=== PATIENT | female | born 1955 | race African-American/Black ===

== ENCOUNTER 2017-05-12 14:01 | Inpatient (IN) ==
[2017-05-12] MEDS ORDERED: MAGNESIUM HYDROXIDE SUSP 30 ML UDCUP PO PRN (14:43)
--- NOTE | 2017-05-12 14:43 | Emergency Department Note ---
Romero Garsia Brittany, am scribing for, and in the presence of, Sadi Rubi M.D. 14:22. Elicia Garsia Howard T, M.D., personally performed the services described in this documentation, ascribed by Joann Jasso in my presence, and it is both accurate and complete [id number] . Arrival - Arrival Chief Complaint: Fall Stated Complaint: fall ED Nursing Triage Note: c/o right ankle and leg pain after fall over the weekend was sent from Dr. Vargas office for further evaluation right leg is externally rotated and shortened at the time of triage+ pedal pulses noted Mode of Arrival: Stretcher Limitations: No Limitations Source: Patient Time Seen by Provider: 05/12/17 14:13 - History of Present Illness HPI Narrative: This is a 61 y/o black female,who presents to the ED with c/o right ankle pain which started 6 days ago S/P fall. She states she fell 6 days ago and hurt her right ankle. She denies hitting her head or any hip pain. She denies any knee pain. Pt has no other complaints/pain in the ED at this time. PT has a PMHx of RA, MS, and GERD. Pt has had an eye surgery. Pt has a family medical Hx of cancer and diabetes. Pt denies a social Hx. Onset (ago): day(s) (6 days ago) Consistency: constant Severity: moderate Date of Last Menstrual Period: hysterectomy Allergies/Adverse Reactions: Allergies Allergy/AdvReac Type Severity Reaction Status Date / Time Sulfa (Sulfonamide Allergy Severe RASH Verified 11/27/16 02:51 Antibiotics) Home Medications: Home Medications Medication Instructions Recorded Confirmed Type Alendronate Sodium 70 mg PO Q7DAY 01/10/16 01/13/16 History Aspirin [Ecotrin] 81 mg PO DAILY 01/10/16 01/13/16 History Dimethyl Fumarate [Tecfidera] 240 mg PO BID 01/10/16 01/13/16 History Escitalopram [Lexapro] 5 mg PO DAILY 01/10/16 01/13/16 History Metoclopramide Tab [Reglan Tab] 5 mg PO DAILY 01/10/16 01/13/16 History Omeprazole 40 mg PO DAILY 01/10/16 01/13/16 History Indomethacin Cap [Indocin Cap] 25 mg PO TID #30 capsule 11/27/16 Rx Tizanidine HCl [Zanaflex] 2 mg PO Q6H #40 capsule 11/27/16 Rx Review of System - Review of System 12 point system: reviewed and no additional remarkable complaints except as stated - Review of System Musculoskeletal: Present: other (Right ankle pain ) Medical,Surgical,& Family Hx - Medical History Neurology: History of: Multiple Sclerosis HEENT: History of: Eye Problem (COD) Rheumatology: History of;: Rheumatoid Arthritis Genitourinary: History of: Bladder Problem (WEAK INCONTIENCE) Gastrointestinal: History of: GERD Musculoskeletal: History of: Musculoskeletal Problems - Surgical History HEENT Surgeries: Surgical HX of: Eye Surgery (ALREADY HAD COS COD ON 01/13/16) - Family History Family History: Reports;: Family Cancer (MOM), Family Diabetes (MOM) - Social History Smoking Status: Never smoker Exam Vital Signs: Vital Signs Temperature 98.5 F 05/12/17 14:10 Pulse Rate 119 H 05/12/17 14:10 Respiratory Rate 20 05/12/17 14:10 Blood Pressure 120/70 05/12/17 14:10 O2 Sat by Pulse Oximetry 98 05/12/17 14:03 - General General appearance: alert, in no apparent distress - Head Head exam: Present: atraumatic, normocephalic, normal inspection - Eye Eye exam: Present: normal appearance, PERRL, EOMI. Absent: nystagmus, miosis, mydriasis - ENT ENT exam: Present: normal exam, normal oropharynx, mucous membranes moist, TM's normal bilaterally, normal external ear exam - Neck Neck exam: Present: normal inspection, full ROM, trachea midline. Absent: tenderness, meningismus, lymphadenopathy, thyromegaly - Chest Chest inspection: Present: normal inspection, symmetric chest wall rise. Absent : tenderness, rash, abscess - Respiratory Respiratory exam: Present: normal lung sounds bilaterally. Absent: rales, respiratory distress, rhonchi, stridor, wheezes - Cardiovascular Cardiovascular exam: Present: regular rate, normal rhythm, normal heart sounds. Absent: murmur, rubs, gallop, clicks, JVD - Abdominal Exam Abdominal exam: Present: soft, normal bowel sounds. Absent: distention, tenderness, guarding, rebound, rigidity - Rectal Exam Rectal exam: Present: deferred - Extremities Exam Extremities exam: Present: normal capillary refill, other (RLE is externally rotated, swollen and erythamous). Absent: normal inspection, full ROM, pedal edema, joint swelling, calf tenderness - Back Exam Back exam: Present: normal inspection, full ROM. Absent: tenderness, muscle spasm, rashes - Neurological Exam Neurological exam: Present: alert, oriented X3, CN II-XII intact. Absent: motor sensory deficit - Psychiatric Psychiatric exam: Present: normal affect, normal mood. Absent: depressed, agitated, anxious, flat affect, manic - Skin Skin exam: Present: warm, dry, intact, normal color. Absent: rash, cyanosis, diaphoresis, erythema, pallor, mottled Course Course Narrative: Medical decision making: Patient comfortable at this time but will probably need to go the operating room, Dr. Ventura orthopedic notified and reviewed x- rays and recommended overnight admission for probable repair in the morning. Disposition Clinical Impression: Closed right ankle fracture, Multiple sclerosis Case discussed with: patient Disposition: Still a Patient Condition: Stable Time of Disposition: 14:42
--- NOTE | 2017-05-12 14:45 | XRay Report ---
XR ankle 2V RT Indication: Fall 5 days ago, externally rotated Comparison: None Technique: Frontal and lateral views of the right ankle Findings: Acute, comminuted fracture through the distal tibial diametaphysis with mild lateral apex angulation. Acute, mildly comminuted fracture through the distal fibular diametaphysis with mild lateral apex angulation. Surrounding soft tissue swelling noted. IMPRESSION: As above. PROCEDURE INTERPRETED AT [facility] DEPARTMENT OF RADIOLOGY Final Report Signed by: Dr Lionel Gonzales
--- NOTE | 2017-05-12 14:48 | XRay Report ---
XR chest 1V portable Indication: Fall. Preop respiratory evaluation. Ankle fracture. Chest one view: Comparison 01/10/2016. Given variation in technique, heart is probably unchanged, still normal in size. Mediastinal contours unremarkable. No discrete infiltrates are seen. Pleural spaces appear clear. Healed posterior right rib fractures are stable. Impression: Given variation in technique, no acute cardiopulmonary disease when compared to 01/10/2016. PROCEDURE INTERPRETED AT [facility] DEPARTMENT OF RADIOLOGY Final Report Signed by: Lyndon Courtney M.D.
[2017-05-12] MEDS ORDERED: LACTATED RINGERS 1,000 ML IV SCH (15:00)
[2017-05-12 15:14] LABS: Basophils % 0.3 % (0.0-0.8); Eosinophils % 0.2 % (0.00-10.9); Hematocrit 40.4 VOL% (35.7-47.0); Immature Granulocytes % 0.6 %; Immature Granulocytes Absolute 0.09 #; Lymphocytes % 6.6 % (21.3-54.2); Mean Corpuscular HGB Conc 32.2 GM/DL (32-36); Mean Corpuscular Hemoglobin 28 PG (27-34); Mean Corpuscular Volume 86.7 FL (87-102); Mean Platelet Volume 11.9 FL (9.6-12.0); Monocytes % 6.4 % (1.7-12.7); Neutrophils # 13.4 10*3/uL (1.4-7.4); Neutrophils % 85.9 % (38.7-73.9); Platelet Count 253 T/CUMM (130-400); Red Blood Count 4.66 MC/CUMM (3.8-5.5); Red Cell Distribution Width 13.8 % (9.3-17.3); White Blood Count 15.6 T/CUMM (4-12)
[2017-05-12 15:24] LABS: PT Patient Result 10.7 SECS
[2017-05-12 15:41] LABS: Calcium 9.2 MG/DL (8.5-10.1); Magnesium 2.5 MG/DL (1.8-2.4); Potassium 3.7 MMOL/L (3.5-5.1)
[2017-05-12 16:02] LABS: Albumin 3.2 G/DL (3.4-5.0); Bilirubin,Total 1.2 MG/DL (0.2-1.0); Calcium 9.1 MG/DL (8.5-10.1); Potassium 3.7 MMOL/L (3.5-5.1); Total Protein 8.2 G/DL (6.4-8.3)
--- NOTE | 2017-05-12 16:39 | Internal Medicine Consult Note ---
Assessment and Plan (1) Multiple sclerosis Status: Chronic Assessment and plan: Impression: 1. Multiple sclerosis Recommendations: The patient's risk for surgery is acceptable. Her revised cardiac risk index is 0. Postop she is to have usual DVT prophylaxis with oral or injectable anticoagulants, JOAQUIN hose, and compression devices. We will be glad to stand by and assist. We will resume home medications as indicated. This note was completed using Kudan voice recognition software. There may be tennis desk team member errors as a result. Current Visit: Yes History of Present Illness - Data of Consult Patient: new to practice Consult date: 05/12/17 Requesting Physician: Scott Ventura Jr. - Consult Narrative Reason for consult: Preoperative evaluation of patient with multiple sclerosis History of present illness: Ms. Mcknight is a 61 year old female The patient has apparently had multiple sclerosis for the past 20 years or so. She is followed by Dr. Radha Skelton in [place]. She is still somewhat ambulatory, but is significantly disabled from the MS. she fell last week, and apparently sustained the ankle fracture at that time. She has finally come into the emergency room for evaluation. She reports no other medical problems at all. She specifically denies any kidney disease, diabetes, hypertension, heart disease, myocardial infarction, congestive heart failure, stroke, chest pain, or dyspnea. CC: Scott Ventura Jr., MD - Home Medications and Allergies Home Medications: Home Medications Medication Instructions Recorded Confirmed Type Alendronate Sodium 70 mg PO Q7DAY 01/10/16 01/13/16 History Aspirin [Ecotrin] 81 mg PO DAILY 01/10/16 01/13/16 History Dimethyl Fumarate [Tecfidera] 240 mg PO BID 01/10/16 01/13/16 History Escitalopram [Lexapro] 5 mg PO DAILY 01/10/16 01/13/16 History Metoclopramide Tab [Reglan Tab] 5 mg PO DAILY 01/10/16 01/13/16 History Omeprazole 40 mg PO DAILY 01/10/16 01/13/16 History Indomethacin Cap [Indocin Cap] 25 mg PO TID #30 capsule 11/27/16 Rx Tizanidine HCl [Zanaflex] 2 mg PO Q6H #40 capsule 11/27/16 Rx Allergies/Adverse Reactions: Allergies Allergy/AdvReac Type Severity Reaction Status Date / Time Sulfa (Sulfonamide Allergy Severe RASH Verified 11/27/16 02:51 Antibiotics) - Neurological Neurological: Present: as per HPI Medical,Surgical,& Family Hx - Medical History Neurology: History of: Multiple Sclerosis HEENT: History of: Eye Problem (COD) Rheumatology: History of;: Rheumatoid Arthritis Genitourinary: History of: Bladder Problem (WEAK INCONTIENCE) Gastrointestinal: History of: GERD Musculoskeletal: History of: Musculoskeletal Problems - Surgical History HEENT Surgeries: Surgical HX of: Eye Surgery (ALREADY HAD COS COD ON 01/13/16) Reproductive Surgeries: Surgical HX of;: Section - Family History Family History: Reports;: Family Cancer (MOM), Family Diabetes (MOM) - Social History Smoking Status: Never smoker Exam (Progress Note) - Constitutional Vitals: Period Temp Pulse Resp BP Sys/Lynn Pulse Ox Last 24 Hr 98.5 F-98.5 F 119-119 18-20 120-123/67-70 90-98 Vital signs are noted above. General: She is a pleasant black lady in no distress. HEENT: Pupils are round and reactive. Extraocular muscles are normal. Gaze is conjugate. Fundi were not examined. There is no nasal discharge. Mucous membranes are moist. Neck: Supple, without mass, bruit, or venous distention. Cardiac: Rhythm is regular. The carotids are normal. I don't hear murmur gallop or rub. Peripheral pulses are intact. Lungs: Clear without rales, wheezes, or rubs. Abdomen: Soft and nontender. Bowel sounds are present. No mass palpable. Rectal: Not done. Extremities: The right upper extremity is contracted. She has a cast on the right lower extremity. She has a few millimeters of edema in the left lower extremity. Skin: No significant rash or lesion. Neurologic: She is awake and alert. The right upper extremity is contracted. The right lower extremity is bandaged and splinted. She has some speech apraxia Results - Labs CBC & BMP: 05/12/17 15:00 05/12/17 15:00 Lab Results: I have reviewed the past 24 hour labs
[2017-05-12] MEDS ORDERED: ONDANSETRON 4 MG/2 ML VIAL IV PRN (19:00)
[2017-05-12] MEDS ORDERED: MORPHINE 2 MG/1 ML SYRINGE IV PRN ×2 (19:00→19:07)
[2017-05-12] MEDS ORDERED: diphenhydrAMINE CAP 25 MG CAPSULE PO PRN (19:00)
[2017-05-12] MEDS ORDERED: ZALEPLON 5 MG CAPSULE PO PRN (19:00)
--- NOTE | 2017-05-12 22:28 | Consultation ---
A 61-year-old black female, admitted for comminuted distal tib-fib fracture. The injury evidently oc curred on Wednesday. She has had two, possibly three EMS visits to the house since this occurred. Marleny gomez, seeking medical attention at [facility] today, where x-ray confirmed fractured distal tib-fib . I was asked to evaluate regarding the injuries. Of note, she does have a significant history of m ultiple sclerosis and she and family report that she has not been ambulatory in years. PAST MEDICAL HISTORY: Multiple sclerosis, arthritis, incontinence and reflux. PAST SURGERY: Hysterectomy and heart surgery. ALLERGIES: ALLERGIC TO SULFA. ALENDRONATE, ECOTRIN, , LEXAPRO, REGLAN, OMEPRAZOLE, INDOCIN AND ZANAFLEX. PHYSICAL EXAMINATION GENERAL: A well-developed, nourished female. She is awake, alert, responding to questions appropria tely. HEENT: Within normal limits. CHEST: Clear. HEART: Regular rate and rhythm. ABDOMEN: Soft, nontender. /RECTAL: Deferred. EXTREMITIES: She has a splint applied, well-padded to the right lower extremity. Capillary refill i s intact. She has no active motion of the toes. She did not respond with any pain with gentle passi ve range of motion. No pain about the left lower or either upper extremity. RADIOGRAPHS: Confirmed a comminuted but well aligned fracture involving the distal tib-fib. IMPRESSION: DISTAL TIBIA-FIBULA FRACTURE, RIGHT. PLAN: I have discussed with her and her family, present the diagnosis given her medical comorbiditie s and nonambulatory status, I have recommended nonoperative treatment. I believe, we can continue to manage this in good alignment in the cast. Due to significant amount of swelling, she has had over the past five days, the splint is appropriate initially; we would put on casting in the near feature. They appear to understand and agree with the plan. We will get PT to assist with mobilizing and sh e will most likely need rehab placement. We will consult Hospital Orderly. Appreciate Medicine's hel p.
[2017-05-13] MEDS: DESITIN 4OZ/NYSTATIN 15 GRAM MIXTURE PASTE TOP SCH ×2 (09:50→22:46)
--- NOTE | 2017-05-13 12:34 | Hospitalist Progress Note ---
Assessment and Plan - Time spent with patient Time spent with patient: Greater than 30 minutes (1) Closed right ankle fracture Status: Acute Assessment and plan: Nonoperative management. Continue PT as per orthopedics recommendations. Current Visit: Yes (2) Multiple sclerosis Status: Chronic Assessment and plan: Supportive care. Current Visit: Yes Hospitalist: Subjective Interval history: Ms. Mcknight was admitted for distal tib-fib fracture right side. She has no complaints currently. Exam - Constitutional Vitals: Period Temp Pulse Resp BP Sys/Lynn Pulse Ox Last 24 Hr 97.6 F-99.2 F 92-119 18-20 120-149/67-85 90-99 General appearance: no acute distress - Head Head exam: Present: normocephalic, atraumatic - Eye Eye exam: Present: EOMI Pupils: Present: KENDRA - ENT ENT exam: Present: normal exam - Neck Neck exam: Present: normal inspection - Respiratory Respiratory exam: Present: clear to auscultation bilaterally. Absent: rhonchi, wheezes - Cardiovascular Cardiovascular exam: Present: regular rate and rhythm. Absent: gallop, rubs, systolic murmur - GI/Abdominal GI/Abdominal exam: Present: normal bowel sounds, soft. Absent: distended, firm , guarding, tenderness, rebound - Extremities Exam Extremities exam: Present: normal inspection, other (Right lower leg within soft cast). Absent: calf tenderness, edema Results - Labs CBC & BMP: 05/12/17 15:00 05/12/17 15:00 Lab Results: I have reviewed the past 24 hour labs
--- NOTE | 2017-05-13 13:13 | Orthopedic Progress Note ---
Orthopedics - Subjective Interval history: Tolerating splint well mobilized to chair discussed with she and her sister/ family options for either rehab versus going back home she is essentially nonambulator will remain nonweightbearing on the right ankle. Splint is in place and comfortable plan on changing to cast in 1 week will have a follow-up visit for casting Exam - Constitutional Vitals: Period Temp Pulse Resp BP Sys/Lynn Pulse Ox Last 24 Hr 97.6 F-99.2 F 92-119 18-20 120-149/67-85 90-99 Results - Labs CBC & BMP: 05/12/17 15:00 05/12/17 15:00
--- NOTE | 2017-05-13 13:15 | Discharge Summary ---
<Scott Ventura Jr. - Last Filed: 05/13/17 13:13> Hospital Course - Hospital Course Hospital Course: Admitted for right tib-fib fracture nonoperative candidate tolerating splint. Due to medical comorbidities and nonweightbearing status patient was able to be discharged home. She was discharged to inpatient rehab. Time of discharge her splint was clean and dry, brisk capillary refill in toes Diagnosis - Discharge Diagnosis (1) Fracture of right tibia and fibula Status: Acute Specialty Discharge - Follow Up or Referrals Follow up with: Scott Ventura Jr., MD [Physician] - 05/24/17 10:00 am Discharge Plan - Discharge Data Disposition: Disch/Xfer-Ip Rehab Fac Condition at Discharge: Stable Discharge Diet: advance to your usual diet Activity: ambulate only with your walker, increase activity as tolerated Weight Bearing at Discharge: non-weight bearing Driving: not until seen by doctor - Discharge Medications Continue Alendronate Sodium 70 mg PO Q7DAY Escitalopram [Lexapro] 5 mg PO DAILY Omeprazole 40 mg PO DAILY Aspirin [Ecotrin] 81 mg PO DAILY - Follow Up or Referral Follow Up: Scott Ventura Jr., MD [Physician] - 05/24/17 10:00 am - Forms/Instructions Additional Discharge Instructions: Discharge to home versus swing bed continue home medications [place] for pain routine splint care keep clean dry and elevated nonweightbearing on the right follow-up in 10 days for cast Exam - Constitutional Vitals: Period Temp Pulse Resp BP Sys/Lynn Pulse Ox Last 24 Hr 97.4 F-98.3 F 89-104 16-20 112-136/65-75 93-100 DS: Provider Date of admission: 05/12/17 14:43 Primary care physician: . No PCP Attending physician on admission: Scott Ventura Jr., MD Consults: 05/12/17 14:43 Consult to Physician [CONS] Routine Comment: Consulting Provider: [facility] 05/12/17 14:46 Consult to Physician [CONS] Routine Comment: Consulting Provider: Consult Notification Comment: pt was seen by Lorenzo Burden in ed 05/12/17 18:59 Consult to Case Mgmt/Social Srvs [CONS] Routine Reason for Case Mgmt/Social Srvs: Discharge Planning Consult to Physical Therapy [CONS] Routine Reason for Physical Therapy: Evaluate and Treat Consult Comment: [id number] on right Discharging clinician: Scott Ventura Jr., MD <Amando Canas - Last Filed: 05/17/17 08:34> Diagnosis - Discharge Diagnosis (1) Closed right ankle fracture Status: Acute
[2017-05-13] MEDS: PANTOPRAZOLE 40 MG TABLET PO SCH (15:46)
[2017-05-13] MEDS ORDERED: DIMETHYL FUMARATE 240 MG PO SCH (21:00)
[2017-05-14 07:43] LABS: Basophils % 0.4 % (0.0-0.8); Eosinophils # 0.4 10*3/uL (0.0-0.87); Eosinophils % 4.9 % (0.00-10.9); Hematocrit 33.2 VOL% (35.7-47.0); Immature Granulocytes % 0.4 %; Immature Granulocytes Absolute 0.04 #; Lymphocytes # 1.1 10*3/uL (1.4-4.0); Lymphocytes % 11.9 % (21.3-54.2); Mean Corpuscular HGB Conc 33.1 GM/DL (32-36); Mean Corpuscular Hemoglobin 29 PG (27-34); Mean Corpuscular Volume 86.7 FL (87-102); Mean Platelet Volume 12.3 FL (9.6-12.0); Monocytes # 0.8 10*3/uL (0.11-0.8); Monocytes % 8.9 % (1.7-12.7); Neutrophils # 6.6 10*3/uL (1.4-7.4); Neutrophils % 73.5 % (38.7-73.9); Platelet Count 236 T/CUMM (130-400); Red Blood Count 3.83 MC/CUMM (3.8-5.5); Red Cell Distribution Width 13.9 % (9.3-17.3)
[2017-05-14] MEDS: ESCITALOPRAM 10 MG TABLET PO SCH (09:32)
[2017-05-14] MEDS: PANTOPRAZOLE 40 MG TABLET PO SCH (09:32)
[2017-05-14] MEDS: ASPIRIN EC 81 MG TABLET PO SCH (09:33)
--- NOTE | 2017-05-14 12:43 | Hospitalist Progress Note ---
Assessment and Plan - Time spent with patient Time spent with patient: Greater than 30 minutes (1) Closed right ankle fracture Status: Acute Assessment and plan: Nonoperative management. Continue PT as per orthopedics recommendations. Current Visit: Yes (2) Multiple sclerosis Status: Chronic Assessment and plan: Supportive care. Home medications have been continued. Current Visit: Yes Hospitalist: Subjective Interval history: No complaints this morning. No overnight events. Exam - Constitutional Vitals: Period Temp Pulse Resp BP Sys/Lynn Pulse Ox Last 24 Hr 97.5 F-98.9 F 93-112 18-20 113-139/60-72 95-100 General appearance: no acute distress - Head Head exam: Present: normocephalic, atraumatic - Eye Eye exam: Present: EOMI Pupils: Present: KENDRA - ENT ENT exam: Present: normal exam - Neck Neck exam: Present: normal inspection - Respiratory Respiratory exam: Present: clear to auscultation bilaterally. Absent: rhonchi, wheezes - Cardiovascular Cardiovascular exam: Present: regular rate and rhythm. Absent: gallop, rubs, systolic murmur - GI/Abdominal GI/Abdominal exam: Present: normal bowel sounds, soft. Absent: distended, firm , guarding, tenderness, rebound - Extremities Exam Extremities exam: Present: normal inspection, other (Right leg with an soft splint). Absent: calf tenderness, edema Results - Labs CBC & BMP: 05/14/17 06:34 05/12/17 15:00 Lab Results: I have reviewed the past 24 hour labs Specialty Discharge - Follow Up or Referrals Follow up with: Scott Ventura Jr., MD [Physician] - 05/24/17 10:00 am
--- NOTE | 2017-05-14 14:51 | Orthopedic Progress Note ---
Assessment and Plan (1) Closed right ankle fracture Status: Acute Assessment and plan: Continue physical therapy Discharge planning Current Visit: Yes Qualifiers: Encounter type: initial encounter Qualified Code(s): S82.891A - Other fracture of right lower leg, initial encounter for closed fracture Orthopedics - Subjective Interval history: No new complaints. Patient was able to sit on the side of the bed with therapy this morning. On exam her splint is clean and dry Exam - Constitutional Vitals: Period Temp Pulse Resp BP Sys/Lynn Pulse Ox Last 24 Hr 97.5 F-98.9 F 93-112 18-20 113-139/60-72 95-100 Results - Labs CBC & BMP: 05/14/17 06:34 05/12/17 15:00 Specialty Discharge - Follow Up or Referrals Follow up with: Scott Ventura Jr., MD [Physician] - 05/24/17 10:00 am
[2017-05-14] MEDS: DESITIN 4OZ/NYSTATIN 15 GRAM MIXTURE PASTE TOP SCH ×2 (19:48→22:30)
--- NOTE | 2017-05-15 06:59 | Orthopedic Progress Note ---
Assessment and Plan (1) Closed right ankle fracture Status: Acute Assessment and plan: Continue physical therapy Discharge planning Current Visit: Yes Qualifiers: Encounter type: initial encounter Qualified Code(s): S82.891A - Other fracture of right lower leg, initial encounter for closed fracture Exam - Constitutional Vitals: Period Temp Pulse Resp BP Sys/Lynn Pulse Ox Last 24 Hr 97.1 F-98.0 F 93-110 18-20 116-137/60-116 95-99 Results - Labs CBC & BMP: 05/14/17 06:34 05/12/17 15:00 Specialty Discharge - Follow Up or Referrals Follow up with: Scott Ventura Jr., MD [Physician] - 05/24/17 10:00 am
--- NOTE | 2017-05-15 08:01 | Orthopedic Progress Note ---
Assessment and Plan (1) Closed right ankle fracture Status: Acute Assessment and plan: Continue physical therapy Discharge planning Current Visit: Yes Qualifiers: Encounter type: initial encounter Qualified Code(s): S82.891A - Other fracture of right lower leg, initial encounter for closed fracture Orthopedics - Subjective Interval history: No c/o this am. exam unchanged from yesterday Exam - Constitutional Vitals: Period Temp Pulse Resp BP Sys/Lynn Pulse Ox Last 24 Hr 97.1 F-98.0 F 93-110 18-20 116-137/70-116 93-97 Results - Labs CBC & BMP: 05/14/17 06:34 05/12/17 15:00 Specialty Discharge - Follow Up or Referrals Follow up with: Scott Ventura Jr., MD [Physician] - 05/24/17 10:00 am
[2017-05-15] MEDS: ESCITALOPRAM 10 MG TABLET PO SCH (09:01)
[2017-05-15] MEDS: PANTOPRAZOLE 40 MG TABLET PO SCH (09:01)
[2017-05-15] MEDS: ASPIRIN EC 81 MG TABLET PO SCH (09:01)
--- NOTE | 2017-05-15 09:27 | Hospitalist Progress Note ---
Assessment and Plan - Time spent with patient Time spent with patient: Less than 30 minutes (1) Fracture of right tibia and fibula Status: Acute Assessment and plan: She had nonoperative treatment and is being followed by or so. Discharge planning is in process. Current Visit: Yes (2) Multiple sclerosis Status: Chronic Assessment and plan: Stable and continue current medical care. Awaiting discharge planning. Current Visit: Yes Hospitalist: Subjective Interval history: Chart has been reviewed and patient examined. She has no complaints at this time. Exam - Constitutional Vitals: Period Temp Pulse Resp BP Sys/Lynn Pulse Ox Last 24 Hr 97.1 F-98.0 F 93-110 18-20 116-137/70-116 93-97 General appearance: no acute distress - Head Head exam: Present: normocephalic, atraumatic - Eye Eye exam: Present: EOMI - ENT ENT exam: Present: normal exam - Neck Neck exam: Present: normal inspection - Respiratory Respiratory exam: Present: clear to auscultation bilaterally - Cardiovascular Cardiovascular exam: Present: regular rate and rhythm - GI/Abdominal GI/Abdominal exam: Present: normal bowel sounds, soft. Absent: tenderness, rebound - Extremities Exam Extremities exam: Present: other (Splinting left ankle). Absent: calf tenderness, edema - Neurological Exam Neurological exam: Present: alert, oriented X3 - Skin Skin exam: Present: warm, dry. Absent: rash Results - Labs CBC & BMP: 05/14/17 06:34 05/12/17 15:00 Lab Results: I have reviewed the past 24 hour labs Specialty Discharge - Follow Up or Referrals Follow up with: Scott Ventura Jr., MD [Physician] - 05/24/17 10:00 am
[2017-05-15] MEDS: DESITIN 4OZ/NYSTATIN 15 GRAM MIXTURE PASTE TOP SCH ×2 (09:43→20:24)
[2017-05-16] MEDS: PANTOPRAZOLE 40 MG TABLET PO SCH (08:40)
[2017-05-16] MEDS: ESCITALOPRAM 10 MG TABLET PO SCH (08:40)
[2017-05-16] MEDS: ASPIRIN EC 81 MG TABLET PO SCH (08:40)
--- NOTE | 2017-05-16 09:17 | Hospitalist Progress Note ---
Assessment and Plan - Time spent with patient Time spent with patient: Less than 30 minutes (1) Fracture of right tibia and fibula Status: Acute Assessment and plan: She had nonoperative treatment and is being followed by orthopedics. Discharge planning is in process. Current Visit: Yes (2) Multiple sclerosis Status: Chronic Assessment and plan: Stable and continue current medical care. Awaiting discharge planning. Current Visit: Yes Hospitalist: Subjective Interval history: Patient doing well without complaints today. Exam - Constitutional Vitals: Period Temp Pulse Resp BP Sys/Lynn Pulse Ox Last 24 Hr 96.3 F-99.1 F 85-101 16-20 112-141/66-81 92-97 General appearance: no acute distress - Head Head exam: Present: normocephalic, atraumatic - Eye Eye exam: Present: EOMI Pupils: Present: KENDRA - ENT ENT exam: Present: normal exam - Neck Neck exam: Present: normal inspection - Respiratory Respiratory exam: Present: clear to auscultation bilaterally - Cardiovascular Cardiovascular exam: Present: regular rate and rhythm - GI/Abdominal GI/Abdominal exam: Present: normal bowel sounds, soft. Absent: tenderness, rebound - Extremities Exam Extremities exam: Present: other (Casted/splinted right ankle.). Absent: calf tenderness, edema - Neurological Exam Neurological exam: Present: alert, oriented X3 - Psychiatric Psychiatric exam: Absent: agitated, anxious - Skin Skin exam: Present: warm, dry. Absent: rash Results - Labs CBC & BMP: 05/14/17 06:34 05/12/17 15:00 Lab Results: I have reviewed the past 24 hour labs Specialty Discharge - Follow Up or Referrals Follow up with: Scott Ventura Jr., MD [Physician] - 05/24/17 10:00 am
[2017-05-16] MEDS: DESITIN 4OZ/NYSTATIN 15 GRAM MIXTURE PASTE TOP SCH ×2 (09:39→21:43)
--- NOTE | 2017-05-16 11:36 | Orthopedic Progress Note ---
Assessment and Plan (1) Closed right ankle fracture Status: Acute Assessment and plan: Continue therapy Discharge to rehab tomorrow Current Visit: Yes Qualifiers: Encounter type: initial encounter Qualified Code(s): S82.891A - Other fracture of right lower leg, initial encounter for closed fracture Orthopedics - Subjective Interval history: No new complaints this morning. Exam unchanged Exam - Constitutional Vitals: Period Temp Pulse Resp BP Sys/Lynn Pulse Ox Last 24 Hr 96.3 F-99.1 F 85-101 16-20 112-141/66-81 93-97 Results - Labs CBC & BMP: 05/14/17 06:34 05/12/17 15:00 Specialty Discharge - Follow Up or Referrals Follow up with: Scott Ventura Jr., MD [Physician] - 05/24/17 10:00 am
--- NOTE | 2017-05-17 07:44 | Orthopedic Progress Note ---
Assessment and Plan (1) Closed right ankle fracture Status: Acute Assessment and plan: Discharge to rehab today Current Visit: Yes Qualifiers: Encounter type: initial encounter Qualified Code(s): S82.891A - Other fracture of right lower leg, initial encounter for closed fracture Orthopedics - Subjective Interval history: No new complaints this morning. Pain control. Exam unchanged Exam - Constitutional Vitals: Period Temp Pulse Resp BP Sys/Lynn Pulse Ox Last 24 Hr 97.4 F-98.3 F 89-104 16-20 112-136/65-75 93-100 Results - Labs CBC & BMP: 05/14/17 06:34 05/12/17 15:00 Specialty Discharge - Follow Up or Referrals Follow up with: Scott Ventura Jr., MD [Physician] - 05/24/17 10:00 am
--- NOTE | 2017-05-17 08:17 | Hospitalist Progress Note ---
Assessment and Plan - Time spent with patient Time spent with patient: Less than 30 minutes (1) Fracture of right tibia and fibula Status: Acute Assessment and plan: She had nonoperative treatment and is being followed by orthopedics. Discharge planning is in process. Current Visit: Yes (2) Multiple sclerosis Status: Chronic Assessment and plan: Stable and continue current medical care. Awaiting discharge planning. Current Visit: Yes Hospitalist: Subjective Interval history: Patient has no new complaints at this time. Note plans for possible discharge. Exam - Constitutional Vitals: Period Temp Pulse Resp BP Sys/Lynn Pulse Ox Last 24 Hr 97.4 F-98.3 F 89-104 16-20 112-136/65-75 93-100 General appearance: no acute distress - Head Head exam: Present: normocephalic, atraumatic - Eye Eye exam: Present: EOMI Pupils: Present: KENDRA - ENT ENT exam: Present: normal exam - Neck Neck exam: Present: normal inspection - Respiratory Respiratory exam: Present: clear to auscultation bilaterally - Cardiovascular Cardiovascular exam: Present: regular rate and rhythm - GI/Abdominal GI/Abdominal exam: Present: normal bowel sounds, soft. Absent: tenderness, rebound - Extremities Exam Extremities exam: Present: other (Casting/splinted right lower extremity). Absent: calf tenderness - Back Exam Back exam: Present: normal inspection - Neurological Exam Neurological exam: Present: alert, oriented X3 - Skin Skin exam: Present: warm, dry. Absent: rash Results - Labs CBC & BMP: 05/14/17 06:34 05/12/17 15:00 Lab Results: I have reviewed the past 24 hour labs Specialty Discharge - Follow Up or Referrals Follow up with: Scott Ventura Jr., MD [Physician] - 05/24/17 10:00 am
[2017-05-17] MEDS: DESITIN 4OZ/NYSTATIN 15 GRAM MIXTURE PASTE TOP SCH (09:54)
[2017-05-17] MEDS: ASPIRIN EC 81 MG TABLET PO SCH (09:54)
[2017-05-17] MEDS: ESCITALOPRAM 10 MG TABLET PO SCH (09:54)
[2017-05-17] MEDS: PANTOPRAZOLE 40 MG TABLET PO SCH (09:54)
[2017-05-17 16:23] VITALS: BP 130/71
[2017-05-23] MEDS ORDERED: NON-FORMULARY MEDICATION (Alendronate Sodium [Alendronate Sodium] 70 MG) PO SCH (09:00)
== END 2017-05-17 16:20 | DRG 563 ==
LOC: EDUNIT# → EDBD → N.ED 14:01 → N.EDINP 14:43 → N.3E 16:48
PROVIDERS: ADMIT Orthopaedic Surgery; ATTEND Orthopaedic Surgery

== ENCOUNTER 2019-01-12 17:34 | Inpatient (IN) ==
[2019-01-12] MEDS ORDERED: ONDANSETRON 4 MG/2 ML VIAL IV STA (19:42)
[2019-01-12] MEDS ORDERED: PANTOPRAZOLE 40 MG VIAL IV STA (19:42)
[2019-01-12] MEDS ORDERED: SODIUM CHLORIDE 0.9% 500 ML IV STA (19:42)
[2019-01-12 21:19] LABS: Apearance,Urine CLEAR (Clear); Bilirubin,Urine Negative (Negative); Blood, Urine Negative (Negative); Glucose,Urine (UA) Negative (Negative); Ketones,Urine 5 mg/dL (Negative); Nitrite,Urine Negative (Negative); Protein,Urine Negative; RBC,Urine 3 /HPF (0-4); Urine Color Yellow (Yellow); Urine Specific Gravity > 1.060 (1.001-1.035)
[2019-01-12 21:23] LABS: Basophils # 0.1 10*3/uL (0.0-0.2); Basophils % 0.3 % (0.0-0.8); Eosinophils # 0.1 10*3/uL (0.0-0.87); Eosinophils % 0.4 % (0.00-10.9); Hematocrit 35.7 VOL% (35.7-47.0); Hemoglobin 11.2 GM/DL (12.0-16.0); Immature Granulocytes % 0.8 %; Immature Granulocytes Absolute 0.14 #; Lymphocytes # 0.8 10*3/uL (1.4-4.0); Lymphocytes % 4.1 % (21.3-54.2); Mean Corpuscular HGB Conc 31.4 GM/DL (32-36); Mean Corpuscular Hemoglobin 27 PG (27-34); Mean Corpuscular Volume 86.4 FL (87-102); Mean Platelet Volume 11.8 FL (9.6-12.0); Monocytes # 1.1 10*3/uL (0.11-0.8); Monocytes % 6.1 % (1.7-12.7); Neutrophils # 16.5 10*3/uL (1.4-7.4); Neutrophils % 88.3 % (38.7-73.9); Platelet Count 259 T/CUMM (130-400); Red Blood Count 4.13 MC/CUMM (3.8-5.5); Red Cell Distribution Width 13.1 % (9.3-17.3); White Blood Count 18.6 T/CUMM (4-12)
[2019-01-12 21:44] LABS: Albumin 2.6 G/DL (3.4-5.0); Bilirubin,Total 0.8 MG/DL (0.2-1.0); Calcium 8.4 MG/DL (8.5-10.1); Osmolality,Calculated 281.1 MOS/KG (273-304); Potassium 3.2 MMOL/L (3.5-5.1); Total Protein 7.4 G/DL (6.4-8.3)
[2019-01-12 22:18] LABS: Eosinophils 1 % (0-10); Lymphocytes 2 % (20-55); Segmented Neutrophils 93 % (50-85); Total Cells Counted 100
[2019-01-12 22:19] LABS: Giant Platelets Few; Platelet Estimate Adequate
[2019-01-12] MEDS ORDERED: ONDANSETRON 4 MG/2 ML VIAL IV PRN (23:31)
[2019-01-13] MEDS ORDERED: CYCLOBENZAPRINE 10 MG TABLET PO STA (00:10)
[2019-01-13] MEDS ORDERED: CYCLOBENZAPRINE 10 MG TABLET ONE (00:11)
[2019-01-13 07:06] LABS: Basophils # 0.1 10*3/uL (0.0-0.2); Basophils % 0.4 % (0.0-0.8); Eosinophils # 0.1 10*3/uL (0.0-0.87); Eosinophils % 0.8 % (0.00-10.9); Hemoglobin 10.4 GM/DL (12.0-16.0); Immature Granulocytes % 0.6 %; Immature Granulocytes Absolute 0.09 #; Lymphocytes # 0.9 10*3/uL (1.4-4.0); Lymphocytes % 6.1 % (21.3-54.2); Mean Corpuscular HGB Conc 31.5 GM/DL (32-36); Mean Corpuscular Hemoglobin 27 PG (27-34); Mean Corpuscular Volume 86.8 FL (87-102); Monocytes # 1.1 10*3/uL (0.11-0.8); Monocytes % 7.3 % (1.7-12.7); Neutrophils # 12.4 10*3/uL (1.4-7.4); Neutrophils % 84.8 % (38.7-73.9); Platelet Count 239 T/CUMM (130-400); Red Cell Distribution Width 13.1 % (9.3-17.3); White Blood Count 14.7 T/CUMM (4-12)
[2019-01-13 07:23] LABS: Calcium 8.4 MG/DL (8.5-10.1); Osmolality,Calculated 285.7 MOS/KG (273-304)
[2019-01-13] MEDS: ASPIRIN EC 81 MG TABLET PO SCH (08:25)
[2019-01-13] MEDS: CHOLECALCIFEROL 400 UNIT TABLET PO SCH (08:25)
[2019-01-13] MEDS: PANTOPRAZOLE 40 MG TABLET PO SCH (08:26)
[2019-01-13] MEDS: POTASSIUM CHLORIDE 20 MEQ TABLET PO PRN ×5 (09:19→23:33)
[2019-01-13] MEDS: ENOXAPARIN 40 MG/0.4 ML SYRINGE SUBCUT SCH (18:03)
[2019-01-14] MEDS: ASPIRIN EC 81 MG TABLET PO SCH (08:22)
[2019-01-14] MEDS: PANTOPRAZOLE 40 MG TABLET PO SCH (08:22)
[2019-01-14] MEDS: CHOLECALCIFEROL 400 UNIT TABLET PO SCH (08:22)
[2019-01-14] MEDS: VANCOMYCIN INJ 1,250 MG in SODIUM CHLORIDE 0.9% 250 ML IV SCH (13:19)
[2019-01-14] MEDS: ENOXAPARIN 40 MG/0.4 ML SYRINGE SUBCUT SCH (18:27)
[2019-01-15] MEDS: VANCOMYCIN INJ 1,250 MG in SODIUM CHLORIDE 0.9% 250 ML IV SCH ×2 (00:43→12:37)
[2019-01-15] MEDS: PANTOPRAZOLE 40 MG TABLET PO SCH (09:02)
[2019-01-15] MEDS: ASPIRIN EC 81 MG TABLET PO SCH (09:02)
[2019-01-15] MEDS: CHOLECALCIFEROL 400 UNIT TABLET PO SCH (09:03)
[2019-01-15 09:37] LABS: Basophils # 0.1 10*3/uL (0.0-0.2); Basophils % 0.5 % (0.0-0.8); Eosinophils # 0.2 10*3/uL (0.0-0.87); Eosinophils % 1.5 % (0.00-10.9); Hemoglobin 11.4 GM/DL (12.0-16.0); Immature Granulocytes % 0.4 %; Immature Granulocytes Absolute 0.06 #; Lymphocytes # 0.9 10*3/uL (1.4-4.0); Lymphocytes % 6.4 % (21.3-54.2); Mean Corpuscular HGB Conc 30.8 GM/DL (32-36); Mean Corpuscular Hemoglobin 27 PG (27-34); Mean Corpuscular Volume 87.7 FL (87-102); Monocytes # 0.9 10*3/uL (0.11-0.8); Monocytes % 6.5 % (1.7-12.7); Neutrophils # 11.6 10*3/uL (1.4-7.4); Neutrophils % 84.7 % (38.7-73.9); Platelet Count 289 T/CUMM (130-400); Red Blood Count 4.22 MC/CUMM (3.8-5.5); Red Cell Distribution Width 13.1 % (9.3-17.3); White Blood Count 13.6 T/CUMM (4-12)
[2019-01-15 10:09] LABS: Calcium 8.3 MG/DL (8.5-10.1); Osmolality,Calculated 288.6 MOS/KG (273-304)
[2019-01-15 12:26] LABS: Calcium 8.4 MG/DL (8.5-10.1); Osmolality,Calculated 285.7 MOS/KG (273-304)
[2019-01-15] MEDS: ENOXAPARIN 40 MG/0.4 ML SYRINGE SUBCUT SCH (17:33)
[2019-01-16 00:54] LABS: Basophils # 0.1 10*3/uL (0.0-0.2); Basophils % 0.4 % (0.0-0.8); Eosinophils # 0.2 10*3/uL (0.0-0.87); Eosinophils % 1.4 % (0.00-10.9); Hematocrit 37.3 VOL% (35.7-47.0); Hemoglobin 11.4 GM/DL (12.0-16.0); Immature Granulocytes % 0.6 %; Immature Granulocytes Absolute 0.08 #; Lymphocytes % 6.8 % (21.3-54.2); Mean Corpuscular HGB Conc 30.6 GM/DL (32-36); Mean Corpuscular Hemoglobin 27 PG (27-34); Mean Corpuscular Volume 88.8 FL (87-102); Mean Platelet Volume 12.2 FL (9.6-12.0); Monocytes % 7.4 % (1.7-12.7); Neutrophils # 11.7 10*3/uL (1.4-7.4); Neutrophils % 83.4 % (38.7-73.9); Platelet Count 296 T/CUMM (130-400); Red Cell Distribution Width 13.2 % (9.3-17.3)
[2019-01-16 01:06] LABS: Calcium 8.3 MG/DL (8.5-10.1); Osmolality,Calculated 290.4 MOS/KG (273-304); Potassium 3.9 MMOL/L (3.5-5.1)
[2019-01-16] MEDS: VANCOMYCIN INJ 1,250 MG in SODIUM CHLORIDE 0.9% 250 ML IV SCH (01:25)
[2019-01-16] MEDS ORDERED: cefTRIAXone 2,000 MG in SODIUM CHLORIDE 0.9% 100 ML IV SCH (10:00)
[2019-01-16] MEDS ORDERED: cefTRIAXone 2,000 MG in SYRINGE 1 EACH IV SCH (10:00)
[2019-01-16] MEDS: ASPIRIN EC 81 MG TABLET PO SCH (10:27)
[2019-01-16] MEDS: CHOLECALCIFEROL 400 UNIT TABLET PO SCH (10:28)
[2019-01-16] MEDS: PANTOPRAZOLE 40 MG TABLET PO SCH (10:28)
[2019-01-16 15:56] VITALS: BP 125/78
== END 2019-01-16 17:25 | disposition hospice, home (50) | DRG 687 ==
LOC: N.ED 17:34 → N.EDINP 23:31 → N.3E 01-13 01:39
PROVIDERS: ADMIT Internal Medicine; ATTEND Internal Medicine